=== PATIENT | female | born 1975 | race Caucasian/White ===

== ENCOUNTER 2016-07-22 10:13 | Inpatient (IN) | payer OTHER ==
[~2016-07-22] VITALS: Ht 147.3 cm; Wt 47.9 kg
[~2016-07-22 10:13] MED LIST: ACETAMINOP160 MG/51 GT; ACETAMINOPHEN-120 ML GT; ACETAMINOPHEN325 M1 GT; ACIDOPHILUS1 EAC3 GT; ALBUTEROL2.5 MG/3 M IH; ALLEGRA ALLERGY60 MG GT; ALLEGRA60 MG G; ALLEGRA60 MG PO; AMOX TR-K250 MG/5 M GT; ANTI-DIARR1 MG/7.5 M GT; ANTI-DIARRH1 MG/5 ML GT; ANTI-DIARRH1 MG/5 ML PO; ANTIFUNGAL15 G1; ANTISEPTIC SKI237 ML TP; ATROVENT 00.5 MG/2.5 IH; AUGMENTIN500 MG GT; AZITHROMYCIN500 MG PO; Allegra G; Amoxicillin PO; Augmentin GT; Augmentin J; BICARB GT; BUDESONIDE0.25 MG/2 IH; BUDESONIDE0.5 MG/2 M IH; CACARB500L GT; CALCIONATE GT; CALCIUM CA1250 MG/5 GT; CALCIUM CA1250 MG/5 J; CALCIUM CARB GT; CALCIUM CARBONATE GT; CATAPRES0.1 MG G; CATAPRES0.1 MG GT; CATAPRES0.1 MG PO; CEFTIN250 MG/5 M GT; CEFTIN500 MG GT; CENTAMIN240 ML GT; CENTRUM SILV1 TABLE1 G; CERTA-VITE240 ML PO; CHILD IBUP100 MG/5 M GT; CHILDREN'S100 MG/5 M GT; CHILDREN'S100 MG/5 M J; CHILDREN'S100 MG/5 M PO; CHILDREN'S100 MG/51 GT; CHILDREN'S100 MG/59 GT; CHILDREN'S160 MG/11 GT; CHILDREN'S160 MG/16 GT; CHILDREN'S30 MG/5 ML GT; CHILDREN'S5 MG/5 M1 GT; CHILDREN'S5 MG/5 M2 GT; CLEARLAX17 GM GT; CLONIDINE HCL0.1 MG GT; CLONIDINE HCL0.1 MG PO; COUGH CONT100 MG/5 M GT; CRANBERRY TABL1 EACH PO; CREON 241 CAPSULE GT; CREON 241 CAPSULE PO; CREON GT; Calcium Carbonate J; Catapres G; Claritin,Alavart J; DEBROX15 ML BOTH EARS; DEBROX15 ML OT; DEPAKENE250 MG/5 M G; DEPAKENE250 MG/5 M G-TUBE; DEPAKENE250 MG/5 M GT; DEPAKENE250 MG/5 M PEG; DEPAKENE250 MG/5 M PO; DEPO-PROVE150 MG/11 IM; DEPO-PROVER150 MG/ML IM; DIASTAT ACUDIA1 EACH PR; DIASTAT ACUDIAL10 MG; DIASTAT ACUDIAL10 MG PR; DIAZEPAM1 EACH PR; DIAZEPAM5 MG GT; DIAZEPAM5 MG/5 ML J; DIFLUCAN100 MG GT; DULCOLAX10 MG PR; DUONEB 2.5-0.5 M3 ML AEROSOL; DUONEB3 ML IH; Depakene J; Depo-Provera IM; Dulcolax PR; DuoNeb IH; FAST RELIEF LAX10 MG PR; FEOSOL44 MG/ML GT; FEXOFENADINE HC60 M1 GT; FEXOFENADINE HC60 MG GT; FEXOFENADINE HC60 MG J; FEXOFENADINE HC60 MG PO; FLAGYL500 MG GT; FLONASE16 G1 BOTH NARES; FLONASE16 G1 NS; FLORASTOR250 MG GT; FLORASTOR250 MG PO; FLUTICASONE P15.8 ML BOTH NARES; FLUTICASONE PRO16 GM BOTH NARES; FUROSEMIDE20 MG PO; GAS RELIEF 8080 MG GT; GAS RELIEF40 MG/0.6 GT; GAS-X80 MG GT; GENTAMICIN SULFA5 ML BOTH EYES; GOLDEN AGE240 ML GT; HIBICLENS118 ML TP; HIPREX1 GM GT; IBUPROFEN100 MG/5 M GT; IBUPROFEN100 MG/5 M PO; IBUPROFEN400 MG PO; IMDUR30 MG PO; IMODIUM A-1 MG/7.5 M GT; IPRATROPIU0.2 MG/1 M IH; Imodium J; K-DUR20 MEQ GT; K-SOL20 MEQ/15 GT; KAY CIEL20 MEQ/15 GT; KEPPRA J; KEPPRA ORAL100 MG/ML GT; KEPPRA100 MG/1 M GT; KEPPRA100 MG/1 M PO; KEPPRA500 MG G; KLOR-CON M2020 MEQ; LACTULOSE10 GM/15 M PO; LEVETIRACE100 MG/1 M GT; LEVETIRACE100 MG/1 M PO; LEVOFLOXACIN750 MG GT; LOPERAMIDE1 MG/5 ML GT; LORATADINE5 MG/5 M3 GT; LOTRIMIN CREAM15 GM TP; LOTRISONE15 GM; Levaquin GT; Lotrimin Cream TP; Lotrisone TP; MAPAP160 MG/52; MEDROXYPRO150 MG/1 M IM; METHENAMINE HIPP1 G1 GT; METHENAMINE MA500 MG PO; METHENAMINE MAND1 GM GT; METOPROLOL TART25 MG PO; MICONAZOLE; MICRO-K,K-DUR,10 MEQ PO; MILK OF MAGN GT; MILK OF MAGN PO; MIRALAX 527 GM527 GM GT; MONTELUKAST SOD10 MG GT; MONTELUKAST SOD10 MG PO; MOTRIN400 MG PO; MULTI-DELYN473 M1 GT; MULTI-DELYN473 M1 J; MULTI-DELYN473 M1 PO; MYLICON,MYLANTA80 MG GT; Milk Of Magnesia,MOM J; Miralax, Glycolax PO; Mitrazol 2% Cream TP; Motrin GT; Mylicon,Mylanta Gas, J; NIZORAL 2% CREA15 GM TP; NYAMYC60 GM TP; NYSTATIN15 GM TP; ONDANSETRON HCL4 MG GT; ONDANSETRON HCL4 MG PO; ONDANSETRON4 MG/5 ML GT; OSMOLITE1000 M1 PO; PEDIALYTE1000 ML; PEDIATRIC ELEC237 ML GT; PEDIATRIC ELEC237 ML PO; PHENADOZ25 MG PR; PHENERGAN25 MG PR; PHENOBARBI30 MG/7.5 GT; PHENOBARBI30 MG/7.5 PO; PHENOBARBITAL30 MG GT; PHENOBARBITAL30 MG PO; PHENOBARBITAL32.4 MG PO; PHENobarbital GT; PHENobarbital J; PHENobarbital PO; PHILLIPS'400 MG/5 M GT; POTASSIUM20 MEQ/11 G; POTASSIUM20 MEQ/11 GT; POTASSIUM20 MEQ/11 PO; POTASSIUM20 MEQ/15 GT; PREDNISONE1 MG/ML GT; PREDNISONE20 MG GT; PREDNISONE5 MG GT; PREDNISONE5 MG/1 ML PO; PREVACID SOLUTA30 M1 GT; PREVACID SOLUTA30 M1 PO; PREVACID SOLUTA30 MG G; PREVACID SOLUTA30 MG GT; PREVACID SOLUTA30 MG PO; PREVACID30 MG GT; PREVACID30 MG PO; PROMETHAZINE HC25 MG PR; PROVENTIL,2.5 MG/0.5 IH; PROVENTIL,2.5 MG/3 M IH; PROVENTIL,V0.4 MG/ML IH; PULMICORT0.25 MG/1 IH; PULMICORT0.5 MG/21 IH; Phenergan PR; Phenobarbital GT; Potassium Chloride 1 J; Prevacid G; Prevacid Solutab J; RANITIDINE HCL75 MG GT; ROBITUSSIN100 MG/5 M GT; Rocephin IM; SINGULAIR10 MG G; SINGULAIR10 MG GT; SINGULAIR10 MG PO; SMOOTHLAX17 GM GT; SODIUM CHLORIDE1 G1 GT; SYNTHROID25 MCG GT; Singulair GT; Sodium Chloride G; Sodium Chloride GT; THERACRAN GT; THERACRAN650 MG GT; THERAGRAN5 ML GT; THERAGRAN5 ML J; TRIPLE ANTIB28.35 GM TP; TUSSI GT; TUSSIN CHE100 MG/5 M GT; TUSSIN100 MG/5 M; TUSSIN100 MG/5 M GT; TYLENOL EXTRA500 MG GT; TYLENOL650 MG/20. G; TYLOPHEN500 MG G; Tobramycin IM; Tylenol Extra Streng PO; Tylenol GT; VALIUM5 MG G; VALIUM5 MG GT; VALPROIC A250 MG/5 M G; VALPROIC A250 MG/5 M GT; VALPROIC A250 MG/5 M PO; VENTOLIN HFA18 GM IH; VITAMIN D3 GT; VITAMIN D3400 UNIT/1 GT; VITAMIN D3400 UNIT/5 GT; Valium; Valium G; Valium GT; Valium J; ZOFRAN ODT4 MG PO; ZOFRAN0.8 MG/1 M GT; ZOFRAN4 MG GT; ZUPLENZ4 MG; ZYVOX20 MG/1 ML GT; Zithromax GT; [UNRECOGNIZED DRUG - OTHER] G; [UNRECOGNIZED DRUG - OTHER] G; [UNRECOGNIZED DRUG - OTHER] GT; [UNRECOGNIZED DRUG - OTHER] GT; [UNRECOGNIZED DRUG - OTHER] GT; [UNRECOGNIZED DRUG - OTHER] GT; [UNRECOGNIZED DRUG - OTHER] GT; [UNRECOGNIZED DRUG - OTHER] PO; predniSONE GT; predniSONE PO
[2016-07-22 12:05] LABS: HEMATOCRIT 41.3 % (36.0-46.0); MCHC 35.6 G/DL (30.0-36.0); MCV 106.7 FL (83-99); MEAN PLAT.VOLUME 11.2 uM^3 (9.5-12.4); PLATELET COUNT 133 K/uL (156-360); RBC DIS.WIDTH-CV 12.1 % (11.8-14.6); RBC DIS.WIDTH-SD 47.1 % (39-53); RED BLOOD COUNT 3.87 M/uL (3.80-5.20)
[2016-07-22 12:15] LABS: CHLORIDE 106 mEq/L (99-109); SODIUM 140 mEq/L (136-147)
[2016-07-22 12:17] LABS: GLUCOSE 98 mg/dL (70-99)
[2016-07-22 12:18] LABS: ANION GAP 10 MEQ/L (2-14)
[2016-07-22 12:19] LABS: EOSINOPHIL (%) 1.7 % (0-5); EOSINOPHIL COUNT 0.2 K/uL (0-0.3); IMMATURE GRANULOCYTE (%) 0.4 % (0.0-0.7); IMMATURE GRANULOCYTE COUNT 0.4 K/uL; LYMPHOCYTE COUNT 1.9 K/uL (1.0-2.8); MONOCYTE (%) 8.1 % (3-12); MONOCYTE COUNT 0.9 K/uL (0-0.8); NEUTROPHIL COUNT 8.2 K/uL (1.8-6.4); WHITE BLOOD COUNT 11.3 K/uL (4.1-10.2)
[2016-07-22 12:21] LABS: GFR ESTIMATE (CALCULATED) > 59 mL/min/
[2016-07-22 12:22] LABS: UREA NITROGEN (BUN) 11 mg/dL (9-23)
[2016-07-22] MEDS ORDERED: ZOFRAN4 MG PO (12:58)
[2016-07-22] MEDS ORDERED: TUSSIN CHE100 MG/5 M GT (13:00)
[2016-07-22] MEDS ORDERED: CREON 241 CAPSULE GT (13:02)
[2016-07-22] MEDS ORDERED: DUONEB 2.5-0.5 M3 ML AEROSOL (13:05)
[2016-07-22] MEDS ORDERED: PROVENTIL,2.5 MG/3 M IH ×2 (13:05→13:07)
[2016-07-22] MEDS ORDERED: CHILDREN'S160 MG/22 GT (13:09)
[2016-07-22] MEDS ORDERED: DEPAKENE250 MG/5 M GT (13:11)
[2016-07-22] MEDS ORDERED: CRANBERRY TABL1 EACH PO (13:13)
[2016-07-22] MEDS ORDERED: CACARB500L GT (13:17)
[2016-07-22] MEDS ORDERED: CHILDREN'S ALLE30 M1 GT (13:19)
[2016-07-22] MEDS ORDERED: BETASEPT946 ML TP (13:20)
[2016-07-22] MEDS ORDERED: DEPO-PROVER150 MG/ML IM (13:22)
[2016-07-22] MEDS ORDERED: MULTI-DELYN473 M1 GT (13:24)
[2016-07-22 13:41] VITALS: BP 127/78
[2016-07-22] MEDS ORDERED: CEFTIN250 MG/5 M PO (13:53)
[2016-07-22 19:16] LABS: INFLUENZA A VIRAL ANTIGEN NEGATIVE; INFLUENZA B VIRAL ANTIGEN NEGATIVE
[2016-07-22 21:37] VITALS: BP 99/62
[2016-07-23 01:00] VITALS: BP 84/51
[2016-07-23 04:20] VITALS: BP 101/59
[2016-07-23 07:23] LABS: ANION GAP 8 MEQ/L (2-14); CHLORIDE 103 MEQ/L (99-109); GFR ESTIMATE (CALCULATED) > 59 mL/min/; GLUCOSE 124 mg/dL (70-99); POTASSIUM 4.5 MEQ/L (3.7-5.4); SAMPLE HEMOLYSIS CHECK 0; SAMPLE ICTERIC CHECK 0; SAMPLE LIPEMIA CHECK 0; SODIUM 138 MEQ/L (136-147); UREA NITROGEN (BUN) 9 mg/dL (9-23)
[2016-07-23 09:40] LABS: EOSINOPHIL (%) 0.3 % (0-5); HEMATOCRIT 40.6 % (36.0-46.0); IMMATURE GRANULOCYTE (%) 0.5 % (0.0-0.7); LYMPHOCYTE COUNT 0.6 K/uL (1.0-2.8); MCH 38.4 PG (29.0-34.0); MCV 106.8 FL (83-99); MONOCYTE COUNT 0.1 K/uL (0-0.8); NEUTROPHIL (%) 81.1 % (45-76); NEUTROPHIL COUNT 3.2 K/uL (1.8-6.4); PLATELET COUNT 102 K/uL (156-360); RBC DIS.WIDTH-CV 12.1 % (11.8-14.6); RBC DIS.WIDTH-SD 47.5 % (39-53)
[2016-07-23 12:00] VITALS: BP 112/78
[2016-07-23 16:12] VITALS: BP 100/56
[2016-07-23 19:00] VITALS: BP 142/74
[2016-07-24] VITALS (7 sets, daily range): BP systolic 86–155; BP diastolic 50–90
[2016-07-24 06:20] LABS: MEAN PLAT.VOLUME 11.7 uM^3 (9.5-12.4); PLATELET COUNT 112 K/uL (156-360)
[2016-07-24 06:42] LABS: EOSINOPHIL (%) 0.3 % (0-5); HEMATOCRIT 39.8 % (36.0-46.0); IMMATURE GRANULOCYTE (%) 0.9 % (0.0-0.7); LYMPHOCYTE COUNT 0.8 K/uL (1.0-2.8); MCH 37.9 PG (29.0-34.0); MCHC 35.9 G/DL (30.0-36.0); MCV 105.6 FL (83-99); MONOCYTE (%) 5.5 % (3-12); MONOCYTE COUNT 0.2 K/uL (0-0.8); NEUTROPHIL (%) 67.9 % (45-76); NEUTROPHIL COUNT 2.2 K/uL (1.8-6.4); RBC DIS.WIDTH-CV 11.8 % (11.8-14.6); RBC DIS.WIDTH-SD 45.1 % (39-53); RED BLOOD COUNT 3.77 M/uL (3.80-5.20); WHITE BLOOD COUNT 3.3 K/uL (4.1-10.2)
[2016-07-24 07:40] LABS: ALKALINE PHOSPHATASE 52 IU/L (3-129); ANION GAP 5 MEQ/L (2-14); CHLORIDE 106 MEQ/L (99-109); GFR ESTIMATE (CALCULATED) > 59 mL/min/; GLUCOSE 112 mg/dL (70-99); POTASSIUM 4.5 MEQ/L (3.7-5.4); SAMPLE HEMOLYSIS CHECK 0; SAMPLE ICTERIC CHECK 0; SAMPLE LIPEMIA CHECK 0; SODIUM 138 MEQ/L (136-147); TOTAL BILIRUBIN 0.2 MG/DL (0.0-1.0); UREA NITROGEN (BUN) 11 mg/dL (9-23)
[2016-07-24 07:53] LABS: HEMATOLOGY COMMENT 1 REV; USER ID NJR
[2016-07-25 03:34] VITALS: BP 121/79
[2016-07-25 06:18] LABS: EOSINOPHIL (%) 2.2 % (0-5); EOSINOPHIL COUNT 0.1 K/uL (0-0.3); HEMATOCRIT 38.7 % (36.0-46.0); IMMATURE GRANULOCYTE (%) 1.2 % (0.0-0.7); LYMPHOCYTE COUNT 1.3 K/uL (1.0-2.8); MCH 37.8 PG (29.0-34.0); MCHC 34.9 G/DL (30.0-36.0); MCV 108.4 FL (83-99); MEAN PLAT.VOLUME 11.3 uM^3 (9.5-12.4); MONOCYTE (%) 10.6 % (3-12); MONOCYTE COUNT 0.3 K/uL (0-0.8); NEUTROPHIL (%) 44.9 % (45-76); NEUTROPHIL COUNT 1.4 K/uL (1.8-6.4); PLATELET COUNT 110 K/uL (156-360); RBC DIS.WIDTH-CV 12.1 % (11.8-14.6); RBC DIS.WIDTH-SD 47.1 % (39-53); RED BLOOD COUNT 3.57 M/uL (3.80-5.20); WHITE BLOOD COUNT 3.2 K/uL (4.1-10.2)
[2016-07-25 07:18] LABS: ALKALINE PHOSPHATASE 53 IU/L (3-129); ANION GAP 6 MEQ/L (2-14); CHLORIDE 103 MEQ/L (99-109); GFR ESTIMATE (CALCULATED) > 59 mL/min/; GLUCOSE 88 mg/dL (70-99); POTASSIUM 3.9 MEQ/L (3.7-5.4); SAMPLE HEMOLYSIS CHECK 0; SAMPLE ICTERIC CHECK 0; SAMPLE LIPEMIA CHECK 0; SODIUM 140 MEQ/L (136-147); TOTAL BILIRUBIN 0.2 MG/DL (0.0-1.0); UREA NITROGEN (BUN) 12 mg/dL (9-23)
[2016-07-25 08:00] VITALS: BP 138/58
[2016-07-25 12:00] VITALS: BP 149/89
[2016-07-25 16:15] VITALS: BP 131/86
[2016-07-25 19:45] VITALS: BP 126/82
[2016-07-26 00:20] VITALS: BP 112/75
[2016-07-26 04:28] VITALS: BP 122/73
[2016-07-26 06:33] LABS: EOSINOPHIL COUNT 0.1 K/uL (0-0.3); HEMATOCRIT 39.8 % (36.0-46.0); IMMATURE GRANULOCYTE (%) 1.8 % (0.0-0.7); IMMATURE GRANULOCYTE COUNT 0.1 K/uL; LYMPHOCYTE COUNT 1.8 K/uL (1.0-2.8); MCH 37.1 PG (29.0-34.0); MCHC 34.4 G/DL (30.0-36.0); MCV 107.9 FL (83-99); MEAN PLAT.VOLUME 11.4 uM^3 (9.5-12.4); MONOCYTE (%) 13.5 % (3-12); MONOCYTE COUNT 0.5 K/uL (0-0.8); NEUTROPHIL (%) 37.1 % (45-76); NEUTROPHIL COUNT 1.5 K/uL (1.8-6.4); NRBC (%) 1.6 /100 WBC (0-0); PLATELET COUNT 130 K/uL (156-360); RBC DIS.WIDTH-CV 12.7 % (11.8-14.6); RBC DIS.WIDTH-SD 49.8 % (39-53); RED BLOOD COUNT 3.69 M/uL (3.80-5.20)
[2016-07-26 06:58] LABS: ALKALINE PHOSPHATASE 55 IU/L (3-129); ANION GAP 9 MEQ/L (2-14); CHLORIDE 102 MEQ/L (99-109); GFR ESTIMATE (CALCULATED) > 59 mL/min/; GLUCOSE 93 mg/dL (70-99); POTASSIUM 3.9 MEQ/L (3.7-5.4); SAMPLE HEMOLYSIS CHECK 0; SAMPLE ICTERIC CHECK 0; SAMPLE LIPEMIA CHECK 0; SODIUM 141 MEQ/L (136-147); UREA NITROGEN (BUN) 11 mg/dL (9-23)
[2016-07-26 07:22] LABS: TOTAL BILIRUBIN 0.3 MG/DL (0.0-1.0)
[2016-07-26] MEDS ORDERED: MEDROL DOSEPAK4 MG PO (07:58)
[2016-07-26] MEDS ORDERED: AUGMENTIN80 MG/ML PO (07:58)
[2016-07-26] MEDS ORDERED: BUDESONIDE0.5 MG/2 M AEROSOL (07:58)
[2016-07-26 09:00] VITALS: BP 140/91
== END 2016-07-26 15:19 | disposition home or self-care (01) | DRG 202 ==
LOC: EME 10:13 → 4EAST 12:16 → EDOF 12:16 → 4EAST 13:14
PROVIDERS: Emergency Medicine; Nurse Practitioner Adult Health; Pediatrics
PROC: 02HV33Z Insertion of Infusion Device into Superior Vena Cava, Percutaneous Approach (ICD-10-PCS; principal; 2016-07-23)
DX: J20.9 Acute bronchitis, unspecified (principal); J45.901 Unspecified asthma with (acute) exacerbation; G82.50 Quadriplegia, unspecified; R09.02 Hypoxemia; G80.9 Cerebral palsy, unspecified; M24.50 Contracture, unspecified joint; M41.9 Scoliosis, unspecified; G40.409 Other generalized epilepsy and epileptic syndromes, not intractable, without status epilepticus; I10 Essential (primary) hypertension; K21.9 Gastro-esophageal reflux disease without esophagitis; Z66 Do not resuscitate; Z51.5 Encounter for palliative care; Z93.1 Gastrostomy status; Z88.1 Allergy status to other antibiotic agents
CPT/HCPCS: 71010; 80048; 80053; 80164; 80202; 81003; 83605; 85025; 87040; 87502; 94640; 94640 76; 94667; 94668; 94799; 99202; 99281; 99285; J0696; J1644; J2920; J2930; J3370; J7030; J7050